=== PATIENT | male | born 1975 | race Caucasian/White ===

== ENCOUNTER 2024-10-27 21:56 | Inpatient (IN) | payer OTHER, SELFPAY ==
[2024-10-27] VITALS (7 sets, daily range): BP systolic 148–178; BP diastolic 85–104; PULSE 103–110; RESP 18–20; TEMP 38.2; O2SAT 92–97; BMI 51.7
--- NOTE | 2024-10-27 22:11 | CRLHL7_ITS ---
For Patients: As a result of the Century Cures Act, medical imaging exams and procedure reports are released immediately into your electronic medical record. You may view this report before your referring provider. If you have questions, please contact your health care provider. INDICATION: Right lower quadrant pain and fever. TECHNIQUE: CT abdomen and pelvis acquired with 150 cc Omnipaque 370 IV contrast. COMPARISON: None. FINDINGS: Lower chest: Unremarkable. Liver: Hepatic steatosis. No suspicious hepatic lesion. Gallbladder and bile ducts: Unremarkable. Pancreas: Unremarkable. Spleen: Unremarkable. Adrenal glands: Unremarkable. Kidneys: Symmetric renal enhancement. No hydronephrosis or hydroureter. Probable bilateral renal cysts. No urinary calculi. GI tract: The appendix is distended to 1.1 cm with prominent periappendiceal fat stranding and small proximal appendicolith. Appendiceal seth appear indistinct. No discrete periappendiceal fluid collection/abscess appreciated. No bowel obstruction. Vasculature: No abdominal aortic aneurysm. Grossly patent vasculature. Lymph nodes: No suspicious lymphadenopathy. Peritoneum/Abdominal Wall: No ascites or pneumoperitoneum. Small fat containing left inguinal hernia. Pelvis: Normal bladder. Unremarkable prostate and seminal vesicles. Bones: No acute abnormality. IMPRESSION: 1. Findings compatible with acute appendicitis with small proximal appendicolith. Indistinctness of the appendiceal wall and prominent periappendiceal fat stranding is suggestive of perforation. No teri pneumoperitoneum. No discrete periappendiceal fluid collection/abscess appreciated. 2. Hepatic steatosis. Please note that all CT scans at this facility use dose modulation, iterative reconstruction, and/or weight-based dosing when appropriate to reduce radiation dose to as low as reasonably achievable. Dictated by Sam Farr MD @ 10/27/2024 11:42:19 PM (Electronically Signed)
--- NOTE | 2024-10-27 22:14 | ED_ITS ---
HPI - General Adult General Date Seen: 10/27/24 Chief complaint: Abdominal Pain Stated complaint: Right side abdominal pain, chills Time Seen by Provider: 10/27/24 22:11 History of Present Illness HPI narrative: Patient is a 49-year-old male here for evaluation of right lower abdominal pain. He says he started to have pain at around 4:00 p.m. and it has worsened since then. It is in the low abdomen and wraps around a little bit to his back. He denies prior history of similar pain. No known history of kidney stones, he says recently he has been having some urinary urgency, waking up at night feeling like he has a strong urge to urinate, this has been going on for a little while he saw his primary doctor and a sleep study was done but he does not know the results of that yet. He does not have any new urinary symptoms. He has had some nausea, no vomiting. No changes in bowel habits. No known fevers at home. He denies tobacco, denies significant alcohol use. Related Data Home Medications ?Medication ?Instructions ?Recorded ?Confirmed No Known Home Medications 10/27/24 10/27/24 Allergies Allergy/AdvReac Type Severity Reaction Status Date / Time No Known Drug Allergies Allergy Verified 10/27/24 23:19 Review of Systems Status of ROS: Reports: 10 or more systems reviewed and unremarkable except as noted in History and below PFSH PFS Social History Smoking Status: Never smoker How often do you have a drink containing alcohol: 2-3 times a week How often do you have six or more drinks on one occasion: Never AUDIT-C Alcohol total score: 3 Non-prescribed substance use: marijuana (any form) Non-prescribed substance use details: monthly or less Exam Narrative: Exam Narrative: Vital signs reviewed In general, an alert, middle-aged male. He is significantly overweight, mildly diaphoretic looks uncomfortable. Head: Normocephalic, atraumatic. Eyes: Sclera clear. Pupils equal and reactive. ENT: Mucous membranes moist. Neck: Supple without adenopathy. Heart: Regular rate and rhythm without murmur. Lungs: Clear. No increased work of breathing, crackles or wheezes. Abdomen: Obesity limits exam. He has some tenderness in the right lower abdomen/pelvis. No rebound guarding or rigidity. Extremities: Well perfused, pulses intact. No significant edema. Neurologic: Alert, conversant. Speech fluent, face symmetric. Moves all extremities equally. Skin: Warm, slightly diaphoretic. Affect: Normal. Const: Vital Signs, click to edit/add: Vital Signs - 24 hr 10/27/24 21:59 10/27/24 22:30 10/27/24 22:40 Temperature 100.7 F H Pulse Rate 103 H 104 H Pulse Rate [Pulse Oximeter] 105 H Respiratory Rate 18 20 Blood Pressure 148/85 H Blood Pressure [Ri ght Upper Arm] 178/104 H Pulse Oximetry 97 95 92 Oxygen Delivery Me thod Room Air 10/27/24 22:45 10/27/24 23:10 10/27/24 23:11 Temperature Pulse Rate 104 H 110 H 108 H Pulse Rate [Pulse Oximeter] Respiratory Rate 18 Blood Pressure 160/88 H Blood Pressure [Ri ght Upper Arm] Pulse Oximetry 95 95 94 Oxygen Delivery Me thod 10/27/24 23:15 Temperature Pulse Rate 108 H Pulse Rate [Pulse Oximeter] Respiratory Rate Blood Pressure Blood Pressure [Ri ght Upper Arm] Pulse Oximetry 95 Oxygen Delivery Me thod Course Course ED Course: . Patient presents with fairly recent onset of abdominal pain, he does have a fever here and looks pretty uncomfortable. Diagnostic considerations would include appendicitis, kidney stone, pyelonephritis, ischemia, dissection, among others. I have ordered some pain medication, morphine, Zofran, L normal saline, CT of the abdomen with contrast. UA, and routine blood work ordered and pending. I did attempt to do a bedside ultrasound to evaluate for possible gallstones, hydronephrosis, aortic pathology. His body habitus makes it extremely difficult to see anything and I would not feel confident using those images to rule in or out any pathology. Labs returned showing a white blood cell count of 11.8, CRP mildly elevated at 3.2. Other labs reviewed and negative including a negative UA. CT scan by my review showed a dilated and inflamed appendix at about 12 mm, and appendicoliths, I do not see surrounding abscess. Final radiology read is pending. Case discussed with Dr. Gurrola as to whether patient is an appropriate surgical candidate for here. SMALL ENGINE TRAINER and Dr. Gurrola feel they can safely do the surgery here. At her request I have given him a 2nd L bolus, lactated Ringer's. I gave him a 0.5 mg of Dilaudid for continued pain. He will be transferred to the OR as soon as possible for surgery. Vital Signs Vital signs: Initial Vital Signs Temperature 100.7 F H 10/27/24 21:59 Temperature Source Temporal Artery Scan 10/27/24 21:59 Pulse Rate 105 H 10/27/24 21:59 Respiratory Rate 18 10/27/24 21:59 Blood Pressure 178/104 H 10/27/24 21:59 Blood Pressure Mean 128 H 10/27/24 21:59 Pulse Oximetry 97 10/27/24 21:59 Vital Signs Temperature 100.7 F H 10/27/24 21:59 Pulse Rate 105 H 10/27/24 21:59 Respiratory Rate 18 10/27/24 21:59 Blood Pressure 178/104 H 10/27/24 21:59 Pulse Oximetry 97 10/27/24 21:59 Temperature 100.7 F H 10/27/24 21:59 Pulse Rate 108 H 10/27/24 23:15 Respiratory Rate 18 10/27/24 23:11 Blood Pressure 160/88 H 10/27/24 23:11 Pulse Oximetry 95 10/27/24 23:15 Oxygen Delivery Method Room Air 10/27/24 22:30 Medications Administered Medications: Discontinued Medications Generic Name Dose Route Start Last Admin Trade Name Freq PRN Reason Stop Dose Admin Hydromorphone HCl 0.5 mg 10/27/24 23:46 10/27/24 23:52 Hydromorphone 0.5 Mg/0.5 Ml Inj IVP 10/27/24 23:47 0.5 mg ONCE ONE Administration Sodium Chloride 1,000 mls @ 1,000 mls/hr 10/27/24 22:15 10/27/24 23:28 0.9 % Sodium Chloride 1000 Ml IV 10/27/24 23:14 Infused .Q1H ABBEY Infusion Morphine Sulfate 4 mg 10/27/24 22:11 10/27/24 22:23 Morphine 4 Mg/Ml Inj IVP 10/27/24 22:12 4 mg ONCE ONE Administration Ondansetron HCl 4 mg 10/27/24 22:11 10/27/24 22:23 Ondansetron 2 Mg/Ml Inj IVP 10/27/24 22:12 4 mg ONCE ONE Administration Medical Decision Making Lab Data Labs: Lab Results 10/27/24 10/27/24 Range/Units 22:12 22:45 WBC 11.80 H (4.50-11.00) K/uL RBC 5.23 (4.30-5.90) m/uL Hgb 14.7 (13.5-17.5) gm/dL Hct 45.3 (37.0-53.0) % MCV 87 (80-100) fL MCH 28 (26-34) pg MCHC 33 (32-36) gm/dL RDW Coeff of [place] 13.4 (11.5-15.5) % Plt Count 274 (140-440) K/uL Neut % (Auto) 80.3 H (42.0-72.0) % Lymph % (Auto) 10.3 L (20-44) % [place] % (Auto) 8.0 (0.0-11.0) % Eos % (Auto) 0.8 (0.0-7.0) % Baso % (Auto) 0.3 (0.0-3.0) % Neut # (Auto) 9.50 H (1.7-7.0) K/uL Lymph # (Auto) 1.20 (0.90-2.90) K/uL [place] # (Auto) 0.90 (0.00-0.90) K/UL Eos # (Auto) 0.10 (0.00-0.50) K/uL Baso # (Auto) 0.00 (0.00-0.30) K/uL Abs Immat Gran (auto) 0.00 (0.00-0.30) K/uL Imm/Tot Granulo (auto) 0.3 % Sodium 135 (135-149) mmol/L Potassium 4.0 (3.6-5.1) mmol/L Chloride 100 (96-114) mmol/L Carbon Dioxide 27 (20-32) mmol/L Anion Gap 8 (7-15) mEq/L BUN 14 (5-24) mg/dL Creatinine 0.7 (0.5-1.5) mg/dL Estimated Creat Clear 145.85 Estimated GFR 114 ml/min Glucose 115 (60-115) mg/dL Lactate 1.3 (0.5-1.9) mmol/L Calcium 9.1 (8.4-10.6) mg/dL Total Bilirubin 0.7 (0.1-1.5) mg/dL Direct Bilirubin 0.3 (0.0-0.5) mg/dL AST 24 (12-35) U/L ALT 43 (4-50) U/L Alkaline Phosphatase 74 (40-150) U/L C-Reactive Protein 3.2 H (0.5-1.0) mg/dL Total Protein 6.9 (6.0-8.3) g/dL Albumin 4.1 (3.3-5.0) g/dL Lipase 70 (23-300) U/L Urine Color Yellow (Yellow) Urine Appearance Clear (Clear) Urine pH 7.5 (5.0-8.5) Ur Specific [place] 1.020 (1.000-1.030) Urine Protein Negative (Negative) Urine Glucose (UA) Negative (Negative) Urine Ketones Negative (Negative) Urine Blood Negative (Negative) Urine Nitrite Negative (Negative) Urine Bilirubin Negative (Negative) Urine Urobilinogen 1.0 (0.2-1.0) Ur Leukocyte Esterase Negative (Negative) Urine RBC 0-2 (0-2) Urine WBC 0-2 (0-5) Ur Squamous Epith Cells Few (None-Few) Urine Bacteria None (None) Imaging Data CT scan - abdomen: Attestation: I have reviewed the pertinent imaging results. Radiologist's impression: Patient: HELEN CALIX Facility: [facility] Site . Site : [id number] Study: CT-Abdomen/Pelvis W/ 150CC ISOVUE 370-10/27/2024 11:30:44 PM Ordering Physician: Keerthi Terrazas Final Report: INDICATION: Right lower quadrant pain and fever. TECHNIQUE: CT abdomen and pelvis acquired with 150 cc Omnipaque 370 IV contrast. COMPARISON: None. FINDINGS: Lower chest: Unremarkable. Liver: Hepatic steatosis. No suspicious hepatic lesion. Gallbladder and bile ducts: Unremarkable. Pancreas: Unremarkable. Spleen: Unremarkable. Adrenal glands: Unremarkable. Kidneys: Symmetric renal enhancement. No hydronephrosis or hydroureter. Probable bilateral renal cysts. No urinary calculi. GI tract: The appendix is distended to 1.1 cm with prominent periappendiceal fat stranding and small proximal appendicolith. Appendiceal seth appear indistinct. No discrete periappendiceal fluid collection/abscess appreciated. No bowel obstruction. Vasculature: No abdominal aortic aneurysm. Grossly patent vasculature. Lymph nodes: No suspicious lymphadenopathy. Peritoneum/Abdominal Wall: No ascites or pneumoperitoneum. Small fat containing left inguinal hernia. Pelvis: Normal bladder. Unremarkable prostate and seminal vesicles. Bones: No acute abnormality. IMPRESSION: 1. Findings compatible with acute appendicitis with small proximal appendicolith. Indistinctness of the appendiceal wall and prominent periappendiceal fat stranding is suggestive of perforation. No teri pneumoperitoneum. No discrete periappendiceal fluid collection/abscess appreciated. 2. Hepatic steatosis. Discharge Plan Discharge Clinical Impression: Acute appendicitis Patient Disposition: XFER to OR Follow Up/Referrals: Provider,Not a Local [Primary Care Provider] -
[2024-10-27] MEDS: 0.9 % SODIUM CHLORIDE 1000 ml 1,000 ML IV (22:23)
[2024-10-27] MEDS: ONDANSETRON 2 MG/ML inj 4 MG IVP (22:23)
[2024-10-27] MEDS: MORPHINE 4 MG/ML INJ IVP (22:23)
[2024-10-27 22:51] LABS: Lactate Sepsis w/Reflex* 1.3 mmol/L (0.5-1.9)
[2024-10-27 22:57] LABS: Appearance Urine Clear (Clear); Bilirubin Urine Negative (Negative); Blood Urine Negative (Negative); Color Urine Yellow (Yellow); Glucose Urine Negative (Negative); Ketones Urine Negative (Negative); Leukocyte Esterase Urine Negative (Negative); Nitrite Urine Negative (Negative); Protein Urine Negative (Negative); pH Urine 7.5 (5.0-8.5)
[2024-10-27 23:02] LABS: Basophils Percent Auto 0.3 % (0.0-3.0); Eosinophils Percent Auto 0.8 % (0.0-7.0); Hematocrit 45.3 % (37.0-53.0); Hemoglobin* 14.7 gm/dL (13.5-17.5); Immature Granulocytes Pct Auto 0.3 %; Lymphocytes Percent Auto 10.3 % (20-44); Mean Corpuscular HGB Conc 33 gm/dL (32-36); Mean Corpuscular Hemoglobin 28 pg (26-34); Mean Corpuscular Volume 87 fL (80-100); Neutrophils Percent Auto 80.3 % (42.0-72.0); Platelet Count* 274 K/uL (140-440); RDW Coefficient of Variation % 13.4 % (11.5-15.5); Red Blood Count 5.23 m/uL (4.30-5.90)
[2024-10-27 23:03] LABS: Slide Review Reflex No
--- OUTSIDE RECORDS SUMMARY | 2024-10-27 23:04 | XMS_ITS | Encounter Summary ---
Author Organization [facility] Address [address] [place] [address] Care Team Providers Care Senior Net Engineer Name Role Phone Seng Rob MD Primary Care Provider [phone] Encounter Details Date Type Department Care Team (Late st Contact Info) Description 09/14/2024 E-Visit [facility] [address] Pulmonary Medicine [address] [place], [place] [id number] Mychart, [place] [address] Social History Tobacco Use Types Packs/Day Years Used Date Smoking Tobacco: Never Passive Smoke Exposure: Never Smokeless Tobacco: Never Alcohol Use Standard Drinks/Week Comments Yes 0 (1 standard drink = 0.6 oz pur e alcohol) occ PHQ-2 Answer Date Recorded PHQ-2 Score 0 09/10/2024 Hunger Vital Sign Answer Date Recorded Within the past 12 months, y ou worried that your food would run out before you got the money to buy more. Never true 09/10/19 25 Within the past 12 months, t he food you bought just didn't last and you didn't have money to get more. Never true 09/10/2024 PRAPARE - Transportation Answer Date Re corded In the past 12 months, has l ack of transportation kept you from medical appointments or from getting medications? No 08/14 In the past 12 months, has l ack of transportation kept you from meetings, work, or from getting things needed for daily living? No 09/10/2024 Housing Stability Vital Sign Answer Josue e Recorded In the last 12 months, was t here a time when you were not able to pay the mortgage or rent on time? No 09/10/2024 In the past 12 months, how m any times have you moved where you were living? 0 09/10/2024 At any time in the past 12 m ont, were you homeless or living in a long term (including now)? No 09/10/2024 Sex and Gender Information Value Date Recorded Sex Assigned at Not on file Legal Sex Male 4:34 AM CDT Gender Identity Not on file Sexual Orientation Not on file documented as of this encounter Plan of Treatment Upcoming Encounters Date Type Department Care Team (Late st Contact Info) Description 11/10/2024 2:00 PM CDT Office Visit Specialty Center [address] Pulmonary Medicine [address] [place], [place] [address] López Mullen MD [address] [facility] [id number] [place] [address] documented as of this encounter Visit Diagnoses Not on filedocumented in this encounter Care Teams Senior Net Engineer Relationship Specialty [place] [address] [place] [address] PCP - General Family Practice 09/28/19 documented as of this encounter
--- OUTSIDE RECORDS SUMMARY | 2024-10-27 23:04 | XMS_ITS | Encounter Summary ---
[facility] Address [address], [place] [address] Care Team Providers Care Product Strategy Director Name Role Phone Seng Rob MD Primary Care Provider [phone] Reason for Referral * Procedure/Equipment (Routine) - Closed Specialty Diagnoses / Procedures Referred By Mara quan Referred To Contact Diagnoses CELESTE (obstructive sleep apnea) Procedures Sleep Diagnostic Tests: [place] [address] [place] [address] Phone: tel: fax: Referral ID Status Reason Start Date Expiration Date Visits Re quested Visits Authorized [id number] Closed 09/11/2024 12/11/2025 1 1 ER CLERK Reason for Visit * Procedure/Equipment (Routine) - Closed Specialty Diagnoses / Procedures Referred By Mara quan Referred To Contact Diagnoses CELESTE (obstructive sleep apnea) Procedures Sleep Diagnostic Tests: [place] [address] [place] [address] Phone: tel: fax: Referral ID Status Reason Start Date Expiration Date Visits Re quested Visits Authorized [id number] Closed 09/11/2024 12/11/2025 1 1 Encounter Details Date Type Department Care Team (Latest Contact Info) Description 10/16/2024 10:07 AM SUMMER CLERK - 10/16/2024 11:59 PM SUMMER CLERK Hospital Encounter [facility] [address] [facility] [address] [address] [place] [address] Discharge Disposition: Home Social History Tobacco Use Types Packs/Day Years [...] any time in the past 12 m onths, were you homeless or living in a senior care (including now)? No 09/10/2024 Sex and Gender Information Value Date Recorded Sex Assigned at Not on file Legal Sex Male 4:34 AM CDT Gender Identity Not on file Sexual Orientation Not on file documented as of this encounter Medications at Time of Discharge multivitamin (THERAGRAN) tablet Take 1 Tablet by mouth daily. unknown medication Take by mouth. Supplements- greens and reds documented as of this encounter Plan of Treatment Upcoming Encounters Date Type Department Care Team (Linda vargas Contact Info) Description 11/10/2024 2:00 PM CDT Office Visit Specialty Center [address] Pulmonary Medicine [address] [place] [address] López Mullen MD [address] [facility] [address] [place] [address] Scheduled Orders Name Type Priority Associated Diagnoses Orde r Schedule Sleep Diagnostic Tests: HST Sleep Study Routine CELESTE (obstructive sleep apnea) 1 Occurrences starting 10/16/2024 until 10/16/2024 documented as of this encounter Visit Diagnoses Diagnosis CELESTE (obstructive sleep apnea) Obstructive sleep apnea (adult) (pediatric) documented in this encounter Care Teams Product Strategy Director Relationship Specialty [place] [address] [place] [address] PCP - General Family Practice 09/28/19 documented as of this encounter
--- OUTSIDE RECORDS SUMMARY | 2024-10-27 23:04 | XMS_ITS | Clinical Summary ---
Author Organization [facility] Address [address], [place] [address] Care Team Providers Care Network Security Architect Name Role Phone DarronSeng umana MD Primary Care Provider [phone] Source Comments You are receiving this document as you are listed as the primary care provider,follow-up provider, or the patient has been referred to you for consultation.This is in compliance with the Medicare and[facility] EHR Incentive Program,which states Providers who transition their patient to another setting of careor provider of care or refers their patient to another provider of care shouldprovide summary care record for each transition of care or referral. [facility] Allergies No known active allergies Medications multivitamin (THERAGRAN) tablet Take 1 Tablet by mouth daily. Active unknown medication Take by mouth. Supplements - greens and reds Active Active Problems Problem Noted Date Diagnosed Date Synovial cyst of right popliteal space 2 Primary osteoarthritis of right knee 04/10/2020 Complex tear of lateral meni scus of right knee as current injury 04/10/2020 Post-traumatic osteoarthritis of left knee 04/10 Anal fistula 12/21/2019 Overview (12/21/2019): Added automatically from request for surgery [id number] FH: CAD (coronary artery disease) 09/23/2019 Overview (09/23/2019): Dad - [place] late 40s, DM Encounters Date Type Department Care Team Description 10/16/2024 10:07 AM STORE WORKER - 10/16/2024 11:59 PM STORE WORKER [facility] [address] [facility] [address] [address] [place] [address] Discharge Disposition: Home 09/14/2024 [facility]Visit [facility] Pulmonary Medicine [address] [place] [address] Mychart, Generic Provider 09/11/2024 Notes/Orders [place] [address] [address] [place] [phone] Seng Rob MD CELESTE (obstructive sleep apnea) (Primary Dx) 09/10/2024 11:20 AM STORE WORKER Lab Visit [facility] [address] [place] [phone] Lipid screening; Diabetes mellitus screening; Encounter for screening for malignant neoplasm of prostate; Fatigue, unspecified type 09/10/2024 10:30 AM STORE WORKER Office Visit [place] [address] [facility] [id number] [place] [phone] Seng Rob MD Well adult exam (Primary Dx); Lipid screening; Diabetes mellitus screening; Encounter for screening for malignant neoplasm of prostate; Fatigue, unspecified type; Screening for colon cancer from Last 3 Months Immunizations Immunization Administration Dates Next Due Moderna Monovalent 12+ 01/12/2021,12/15/2020 Tdap 09/23/2019 Family History Medical History Relation Name Comments Diabetes Father Luiz Heart Disease Father Luiz High Cholesterol Father Luiz Hypertension Father Luiz Stroke Father Luiz Kidney/Bladder Disease Mother Heavenly Cancer Maternal Uncle Adithya prostate Early Maternal Uncle Adithya Early Paternal Uncle Ruben Heart Disease Paternal Uncle Ruben Relation Name Status Comments Father Luiz Mother Heavenly Alive Brother Alive Maternal Grandfather Maternal Grandmother Maternal Uncle Adithya Paternal Grandfather Paternal Grandmother Paternal Uncle Ruben Sister Alive Social History Tobacco Use Types Packs/Day Years Used Date Smoking Tobacco: Never Passive Smoke Exposure: Never Smokeless Tobacco: Never Tobacco Cessation:Counseling Given: Not Answered Alcohol Use Standard Drinks/Week Comments Yes 0 [...] any time in the past 12 m [facility], were you homeless or living in a half-way (including now)? No 09/10/2024 Sex and Gender Information Value Date Recorded Sex Assigned at Not on file Legal Sex Male 4:34 AM CDT Gender Identity Not on file Sexual Orientation Not on file Last Filed Vital Signs Vital Sign Reading Time Taken Comments Blood Pressure 120/85 09/10/2024 10:26 AM STORE WORKER Pulse 97 09/10/2024 10:26 AM STORE WORKER Temperature 36.1 C (97 F) 07/12/2020 10:00 AM STORE WORKER Respiratory Rate 16 09/10/2024 10:26 AM STORE WORKER Oxygen Saturation 98% 09/10/2024 10:26 AM STORE WORKER Inhaled Oxygen Concentration - - Weight 177.4 kg (391 lb) 09/10/2024 10:26 AM STORE WORKER Height 184 cm (6' 0.44) 09/10/2024 10:26 AM STORE WORKER Body Mass Index 52.39 09/10/2024 10:26 AM STORE WORKER Plan of Treatment Upcoming Encounters Date Type Department Care Team (Late st Contact Info) Description 11/10/2024 2:00 PM CDT Office Visit [facility] Pulmonary Medicine [address] [place] [address] López Mullen MD [address] [facility] [address] [place] [address] Health Maintenance Due Date Last Done Comments Hep C Screening (Preventive Services) 1975 HIV Screening (Preventive Services) 1992 HepB (1) 1995 Colonoscopy 02/25/2023 02/26/2020 COVID-19 Vaccine (3 - 2023-2 5 season) 2024 01/12/2021, 12/15/2020 Influenza (#1) 2024 Adult Preventive Visit 09/10/2025 , 08/27/2022, 09/23/2019 Zoster/Shingles (1 of 2) 2026 Diabetes Screening- (based o n age and BMI) 09/10/2027 09/10/2024, 08/24/2022, 09/23/2019 Cholesterol 09/10/2029 09/10/2024, 08/24/2022, 09/23/2019 DTaP/Tdap/Td (2 - Tdap) 09/23/2029 09/23/2019 HepA Aged Out No longer eligi ble based on patient's age to complete this topic Hib Aged Out No longer eligi ble based on patient's age to complete this topic IPV (Polio) Aged Out No longer eligi ble based on patient's age to complete this topic MCV4 Aged Out No longer eligi ble based on patient's age to complete this topic Meningococcal B Aged Out No longer el igible based on patient's age to complete this topic Pneumococcal Aged Out No longer eligi ble based on patient's age to complete this topic Procedures Procedure Name Priority Date/Time Associated Diagnosis Comments BASIC METABOLIC PANEL Routine 09/10/2024 10:59 AM STORE WORKER Fatigue, unspecified type COMPLETE BLOOD COUNT-NO DIFF Routine 09/10/2024 10:59 AM STORE WORKER Fatigue, unspecified type TSH, SENSITIVE (WITH REFLEX) Routine 09/10/2024 10:59 AM STORE WORKER Fatigue, unspecified type PROSTATIC SPECIFIC ANTIGEN(SCREEN) Routine 09/10/2024 10:59 AM STORE WORKER Encounter for screening for malignant neoplasm of prostate HGB A1C Routine 09/10/2024 10:59 AM STORE WORKER Diabetes mellitus screening LIPID PANEL & DIRECT LDL (IF NEEDED) Routine 09/10/2024 10:59 AM STORE WORKER Lipid screening ENDOSCOPY, COLON, SCREENING/DIAGNOSTI C Routine 02/26/2020 2:20 PM CDT Screen for colon cancer from Last 3 Months or Most Recently Relevant to Health Maintenance Results * Lipid Panel & Direct LDL (if Needed) (09/10/2024 10:59 AM STORE WORKER) Cholesterol 156 0 - 199 mg/dL 09/10/2024 7:[address] [facility] Triglyceride 103 <=149 mg/dL 09/10/2024 7:[address] [facility] HDL Cholesterol 40 >=40 mg/dL 7:[address] [facility] LDL, Calculated 95 <130 mg/dL 7:[address] [facility] Non HDL Chol, Calculated 116 <=159 mg/dL 09/10/2024 7:[address] [facility] Cholesterol/HDL Ratio 3.9 <=5.0 09/10/2024 7:[address] [facility] Hours Fasting 0.0 8 - 12 Hours 09/10/2024 7:[address] [facility] Blood Venipuncture / Unknown 09/10/2024 10:59 AM STORE WORKER 09/10/2024 10:59 AM STORE WORKER us Seng Rob MD LAB_1 Final Result [facility] [address] [place] [address] * (ABNORMAL) Basic Metabolic Panel (09/10/2024 10:59 AM STORE WORKER) Sodium 138 136 - 145 mmol/L 09/10/2024 7:[address] [facility] Potassium 4.0 3.5 - 5.1 mmol/L 09/10/2024 7:[address] [facility] Chloride 106 98 - 109 mmol/L 09/10/2024 7:[address] [facility] CO2 24 20 - 29 mmol/L 09/10/2024 7:[address] [facility] Anion Gap 8 6 - 16 mmol/L 09/10/2024 7:[address] [facility] Calcium 8.8 8.4 - 10.4 mg/dL 09/10/2024 7:[address] [facility] BUN 10 7 - 26 mg/dL 09/10/2024 7:[address] [facility] Creatinine 0.77 0.73 - 1.18 mg/dL 09/10/2024 7:[address] [facility] Glucose 106(H) 70 - 100 mg/dL 09/10/2024 7:[address] [facility] Comment:The given reference range is for the fasting state. Non-fasting reference range for glucose is 70 - 180 mg/dL. GFR, Estimated >60 >60 mL/min/1.7 3m2 09/10/2024 7:[address] [facility] Hours Fasting 0.0 8 - 12 Hours 09/10/2024 7:[address] [facility] Blood Venipuncture / Unknown 09/10/2024 10:59 AM STORE WORKER 09/10/2024 10:59 AM [facility] us Seng Rob MD LAB_1 Final Result [facility] [address] [place] [address] * Prostatic Specific Antigen (Screen) (09/10/2024 10:59 AM [facility]) Prostatic Specific Antigen 0.4 0.0 - 4.0 ng/mL 09/10/2024 6:06 PM [facility] Blood Venipuncture / Unknown 09/10/2024 10:59 AM STORE WORKER 09/10/2024 10:59 AM [facility] Narrative [facility] - 09/10/2024 6:06 PM STORE WORKER The Khalil PSA Chemiluminescent immunoassay is used. Results obtained with different test methods or kits cannot be used interchangeably. Seng Rob MD LAB_1 Final Result [facility] [address] [place], [place] [address] * Complete Blood Count-No Diff (09/10/2024 10:59 AM STORE WORKER) WBC 6.2 3.5 - 10.5 x10(9)/L 09/10/2024 11:04 AM [facility] RBC 5.42 4.32 - 5.72 x10(12)/L 09/10/2024 11:04 AM [facility] Hemoglobin 15.1 13.5 - 17.5 g/dL 09/10/2024 11:04 AM [facility] HCT 45.6 38.8 - 50.0 % 09/10/2024 11:04 AM [facility] MCV 84.1 80.0 - 100.0 fL 09/10/2024 11:04 AM [facility] MCH 27.9 27.6 - 33.3 pg 09/10/2024 11:04 AM [facility] MCHC 33.1 31.5 - 35.2 g/dL 09/10/2024 11:04 AM [facility] RDW 13.2 11.9 - 15.5 % 09/10/2024 11:04 AM [facility] Platelets 308 150 - 450 x10(9)/L 09/10/2024 11:04 AM [facility] Blood Venipuncture / Unknown 09/10/2024 10:59 AM STORE WORKER 09/10/2024 10:59 AM STORE WORKER Seng Rob MD LAB_1 Final Result [facility] [address] [place] [address] * TSH with Free T4 (if TSH Abnormal) (09/10/2024 10:59 AM STORE WORKER) TSH, Reflex 1.10 0.30 - 4.50 uIU/mL 09/10/2024 6:06 PM STORE WORKER [facility] Blood Venipuncture / Unknown 09/10/2024 10:59 AM STORE WORKER 09/10/2024 10:59 AM STORE WORKER Seng Rob MD LAB_1 Final Result Performing Organization Address City/[facility]/ZIP Co de Phone Number [facility] [address] * (ABNORMAL) Hgb A1C (09/10/2024 10:59 AM STORE WORKER) [facility] Hemoglobin A1C 6.2(H) <=5.6 % 09/10/2024 5:23 PM STORE WORKER [facility] Estimated Average Glucose (Calc) 131 < 117 mg/dL 09/10/2024 5:23 PM [facility] Comment:Estimated average gl ucose (eAG) converts A1c into glucose units (mg/dL) and estimates average glucose over the past approximately 3 months. The eAG reference interval (<117 mg/dL) corresponds to an A1c of <5.7%. Blood Venipuncture / Unknown 09/10/2024 10:59 AM STORE WORKER 09/10/2024 10:59 AM STORE WORKER Narrative [facility] - 09/10/2024 5:23 PM STORE WORKER For patients not previously diagnosed with diabetes: 5.7-6.4%: Increased risk for diabetes 6.5% and greater: Diagnostic for diabetes For patients diagnosed with diabetes: <8.0%: Goal of therapy for ages 18-75 Clinicians may recommend a higher or lower goal for specific individuals. Seng Rob MD LAB_1 Final Result Performing Organization Address City/[facility]/ZIP Co de Phone Number [facility] [address] * Endoscopy, Colon, Screening/Diagnostic (02/26/2020 2:20 PM CDT) Anatomical Region Laterality Modality Other 02/26/2020 2:20 PM CDT Narrative 02/26/2020 2:20 PM CDT Patient Name: Joe Dumont Procedure Date: 02/26/2020 2:20 PM Date of : 1975 Admit Type: Outpatient Age: 44 Gender: Male Note Status: Finalized Attending MD: Seng Barbosa MD Procedure: Colonoscopy Indications: This is the patient's first colonoscopy, Rectal bleeding, FHx form returned - no increased risk Providers: Seng Barbosa MD, Shikha Rendon RN Referring MD: Seng Barbosa MD Medicines: Fentanyl 100 micrograms IV, Midazolam 3 mg IV Complications: No immediate complications. Procedure: Pre-Anesthesia Assessment: - The following statement was reviewed with the patient during pre-procedure scheduling, and was again reviewed with the patient by the endoscopist immediately prior to the procedure during the consent process, with an emphasis on the first sentence: With any procedure there is a small but inherent risk of acquiring infection including, but not limited to, the novel coronavirus (COVID-19). Please be aware that there is a potential for your procedure or surgery to be postponed, or possibly canceled, if you should test positive for COVID-19. There is also a potential for postponement of your procedure if there is a significant reduction in resources required to safely perform your procedure. After I obtained informed consent, the scope was passed under direct vision. Throughout the procedure, the patient's blood pressure, pulse, and oxygen saturations were monitored continuously. The [id number] was introduced through the anus and advanced to the terminal ileum, with identification of the appendiceal orifice and IC valve. The colonoscopy was performed without difficulty. The patient tolerated the procedure well. The quality of the bowel preparation was excellent. Findings: The perianal and digital rectal examinations were normal. A 10 mm polyp was found in the sigmoid colon at 40 cm from the anal verge. The polyp was pedunculated. The polyp was removed with a hot snare. Resection and retrieval were complete. Estimated blood loss was minimal. The exam was otherwise normal throughout the examined colon. The terminal ileum appeared normal. The retroflexed view of the distal rectum was normal and showed no anal or rectal abnormalities. Moderate Sedation: Moderate (conscious) sedation was administered by the endoscopy nurse and supervised by the endoscopist. The following parameters were monitored: oxygen saturation, heart rate, blood pressure, and response to care. Total physician intraservice time was 22 minutes. Impression: - One 10 mm polyp in the sigmoid colon, removed with a hot snare. Resected and retrieved. - The examined portion of the ileum was normal. Recommendation: - Await pathology results. - Repeat colonoscopy in 3 - 5 years for surveillance based on pathology results. - High fiber diet. Procedure Code(s): --- Professional --- 59164, Colonoscopy, flexible; with removal of tumor(s), polyp(s), or other lesion(s) by snare technique G0500, Moderate sedation services provided by the same physician or other qualified health senior care specialist performing a gastrointestinal endoscopic service that sedation supports, requiring the presence of an independent trained observer to assist in the monitoring of the patient's level of consciousness and physiological status; initial 15 minutes of intra-service time; patient age 5 years or older (additional time may be reported with 11319, as appropriate) Diagnosis Code(s): --- Professional --- D12.5, Benign neoplasm of sigmoid colon K62.5, Hemorrhage of anus and rectum CPT copyright 2018 [employer]. All rights reserved. The codes documented in this report are preliminary and upon telephone order clerk review may be revised to meet current compliance requirements. Seng Barbosa MD 02/26/2020 3:37:31 PM This document has been electronically signed. Number of Addenda: 0 Note Initiated On: 02/26/2020 2:20 PM Endoscopy Report Procedure Note Seng Barbosa MD - 02/26/2020 Patient Name: Joe Dumont Procedure Date: 02/26/2020 2:20 PM Date of : 1975 Admit Type: Outpatient Age: 44 Gender: Male Note Status: Finalized Attending MD: Seng Barbosa MD Procedure: Colonoscopy Indications: This is the patient's first colonoscopy, Rectal bleeding, FHx form returned - no increased risk Providers: Seng Barbosa MD, Shikha Rendon RN Referring MD: Seng Barbosa MD Medicines: Fentanyl 100 micrograms IV, Midazolam 3 mg IV Complications: No immediate complications. Procedure: Pre-Anesthesia Assessment: - The following statement was reviewed with the patient during pre-procedure scheduling, and was again reviewed with the patient by the endoscopist immediately prior to the procedure during the consent process, with an emphasis on the first sentence: With any procedure there is a small but inherent risk of acquiring infection including, but not limited to, the novel coronavirus (COVID-19). Please be aware that there is a potential for your procedure or surgery to be postponed, or possibly canceled, if you should test positive for COVID-19. There is also a potential for postponement of your procedure if there is a significant reduction in resources required to safely perform your procedure. After I obtained informed consent, the scope was passed under direct vision. Throughout the procedure, the patient's blood pressure, pulse, and oxygen saturations were monitored continuously. The [id number] was introduced through the anus and advanced to the terminal ileum, with identification of the appendiceal orifice and IC valve. The colonoscopy was performed without difficulty. The patient tolerated the procedure well. The quality of the bowel preparation was excellent. Findings: The perianal and digital rectal examinations were normal. A 10 mm polyp was found in the sigmoid colon at 40 cm from the anal verge. The polyp was pedunculated. The polyp was removed with a hot snare. Resection and retrieval were complete. Estimated blood loss was minimal. The exam was otherwise normal throughout the examined colon. The terminal ileum appeared normal. The retroflexed view of the distal rectum was normal and showed no anal or rectal abnormalities. Moderate Sedation: Moderate (conscious) sedation was administered by the endoscopy nurse and supervised by the endoscopist. The following parameters were monitored: oxygen saturation, heart rate, blood pressure, and response to care. Total physician intraservice time was 22 minutes. Impression: - One 10 mm polyp in the sigmoid colon, removed with a hot snare. Resected and retrieved. - The examined portion of the ileum was normal. Recommendation: - Await pathology results. - Repeat colonoscopy in 3 - 5 years for surveillance based on pathology results. - High fiber diet. Procedure Code(s): --- Professional --- 61129, Colonoscopy, flexible; with removal of tumor(s), polyp(s), or other lesion(s) by snare technique G0500, Moderate sedation services provided by the same physician or other qualified health senior care specialist performing a gastrointestinal endoscopic service that sedation supports, requiring the presence of an independent trained observer to assist in the monitoring of the patient's level of consciousness and physiological status; initial 15 minutes of intra-service time; patient age 5 years or older (additional time may be reported with 75196, as appropriate) Diagnosis Code(s): --- Professional --- D12.5, Benign neoplasm of sigmoid colon K62.5, Hemorrhage of anus and rectum CPT copyright 2018 [employer]. All rights reserved. The codes documented in this report are preliminary and upon telephone order clerk review may be revised to meet current compliance requirements. Seng Barbosa MD 02/26/2020 3:37:31 PM This document has been electronically signed. Number of Addenda: 0 Note Initiated On: 02/26/2020 2:20 PM Endoscopy Report Seng Barbosa MD ET GI PROCEDURE ORDERABLES Fin al Result from Last 3 Months or Most Recently Relevant to Health Maintenance Insurance FULLY INSURED Advance Directives * Full Code (Latest Code Status on File) Date Activated Date Inactivated Comments 07/12/2020 9:33 AM 07/12/2020 1:51 PM * Full Code Date Activated Date Inactivated Comments 04/29/2020 1:57 PM 04/29/2020 7:50 PM Care Teams Network Security Architect Relationship Specialty [place] [address] [place] [address] PCP - General Family Practice 09/28/19
[2024-10-27 23:11] LABS: RBC Urine 0-2 (0-2); WBC Urine 0-2 (0-5)
[2024-10-27 23:11] LABS: Albumin* 4.1 g/dL (3.3-5.0); Chloride* 100 mmol/L (96-114); Sodium* 135 mmol/L (135-149)
[2024-10-27 23:12] LABS: Squamous Epithelial Cell Urine Few (None-Few)
[2024-10-27 23:14] LABS: Anion Gap 8 mEq/L (7-15); Aspartate Amino Transferase* 24 U/L (12-35); Bilirubin Direct* 0.3 mg/dL (0.0-0.5); Bilirubin Total* 0.7 mg/dL (0.1-1.5); Blood Urea Nitrogen* 14 mg/dL (5-24); Carbon Dioxide* 27 mmol/L (20-32); Creatinine* 0.7 mg/dL (0.5-1.5); Est. Creatinine Clearance* 145.85; Estimated Glomerular Filt Rate 114 ml/min; Total Protein* 6.9 g/dL (6.0-8.3)
[2024-10-27 23:15] LABS: Alanine Aminotransferase* 43 U/L (4-50); Alkaline Phosphatase* 74 U/L (40-150); Calcium* 9.1 mg/dL (8.4-10.6); Glucose* 115 mg/dL (60-115); Lipase* 70 U/L (23-300)
[2024-10-27 23:17] LABS: C Reactive Protein* 3.2 mg/dL (0.5-1.0)
[2024-10-27] MEDS: HYDROmorphone 0.5 mg/0.5 ml inj IVP (23:52)
[2024-10-28] VITALS (23 sets, daily range): BP systolic 97–145; BP diastolic 50–87; PULSE 78–94; RESP 17–22; TEMP 35.8–37.7; O2SAT 90–99
[2024-10-28] MEDS: LACTATED RINGERS 1000 ML 1,000 ML IV (00:07)
--- NOTE | 2024-10-28 00:51 | P.GSHP_ITS ---
History of Present Illness History of Present Illness Date Seen: 10/28/24 Chief complaint: Right side abdominal pain, chills Narrative: Joe Dumont is a 49 year old male presented to emergency room with right- sided abdominal pain. Patient states that his pain started around 4-5 p.m.. The pain was crampy and started all of a sudden. Patient thought he was constipated and took to collects. The pain was not improving, and he decided to present to the emergency room. He had some nausea but no vomiting. He was not passing gas after the pain started. I personally reviewed patient's workup in the emergency room. He was found to have an elevated WBC of 11. An abdominal CT was obtained that showed dilated appendix with periappendiceal inflammation. There was a small appendicolith at the base of the appendix. Review of Systems Narrative: General: no fevers HENT: no problems swallowing CV: no shortness of breath Resp: no cough GI: No nausea, vomiting, abdominal pain : no dysuria, no increased urinary frequency, no hematuria Skin: no new rashes Musculoskeletal: no back pain Neuro: no muscle weakness Psyche: no depression, no anxiety PFSH PFSH Surgical History H/O anal fistulotomy ?Z98.890 - Other specified postprocedural states (ICD-10) ?Z87.19 - Personal history of other diseases of the digestive system (ICD-10) Social History Narrative: Patient works as a low-[employer]. Smoking Status: Never smoker How often do you have a drink containing alcohol: 2-3 times a week How often do you have six or more drinks on one occasion: Never AUDIT-C Alcohol total score: 3 Non-prescribed substance use: marijuana (any form) Non-prescribed substance use details: monthly or less Meds Home Medications and Allergies Home Medications ?Medication ?Instructions ?Recorded ?Confirmed ?Type No Known Home Medications 10/27/24 10/27/24 History Allergies Allergy/AdvReac Type Severity Reaction Status Date / Time No Known Drug Allergies Allergy Verified 10/27/24 23:19 Exam Narrative: Exam Narrative: General appearance: Alert, cooperative, and in no distress Pulmonary: Chest symmetric, lungs clear bilaterally Cardiovascular Heart: Regular rate and rhythm, S1, S2, no murmurs/rubs/gallops Gastrointestinal Abdominal: soft, protuberant, not distended, tender to palpation in the right lower quadrant but nowhere else. Skin: Normal skin color, texture, and turgor. No rashes or lesions. Psychiatric: Alert, cooperative, normal affect. Const: Vital Signs, click to edit/add: Vital Signs - 24 hr 10/27/24 21:59 10/27/24 22:30 10/27/24 22:40 Temperature 100.7 F H Pulse Rate 103 H 104 H Pulse Rate [Pulse Oximeter] 105 H Respiratory Rate 18 20 Blood Pressure 148/85 H Blood Pressure [Ri ght Upper Arm] 178/104 H Pulse Oximetry 97 95 92 Oxygen Delivery Me thod Room Air 10/27/24 22:45 10/27/24 23:10 10/27/24 23:11 Temperature Pulse Rate 104 H 110 H 108 H Pulse Rate [Pulse Oximeter] Respiratory Rate 18 Blood Pressure 160/88 H Blood Pressure [Ri ght Upper Arm] Pulse Oximetry 95 95 94 Oxygen Delivery Me thod 10/27/24 23:15 Temperature Pulse Rate 108 H Pulse Rate [Pulse Oximeter] Respiratory Rate Blood Pressure Blood Pressure [Ri ght Upper Arm] Pulse Oximetry 95 Oxygen Delivery Me thod Progress Note:A&P Assessment and plan (1) Acute appendicitis: Status: Acute Plan 49-year-old male presents with acute appendicitis with possible perforation. I discussed with the patient in his brother his laboratory and CT findings. Patient has dilated appendix with periappendiceal inflammation and an appendicolith. Patient has a low-grade fever in the emergency room and slightly tachycardic, which is concerning for perforation. I recommended to proceed with laparoscopic appendectomy. The procedure was discussed in detail. The risks associated procedure including infection, bleeding, injury to intra-abdominal organs, and the need for additional procedures, as well as other cardiopulmonary complications were all discussed with the patient, and he agreed to proceed.
[2024-10-28] MEDS: LACTATED RINGERS 1000 ML 1,000 ML 75 ML IV (00:59)
[2024-10-28] MEDS: PIPERACILLIN/TAZOBACTAM 3.375 GM in 0.9 % SODIUM CHLORIDE Mini-bag 100 ML IVPB ×4 (01:20→19:04)
--- NOTE | 2024-10-28 01:46 | P.ANES_ITS ---
Anesthesia Charges Start Date/Time Anesthesia Start Date: 10/28/24 Anesthesia Start Time: 00:59 Stop Date/Time Anesthesia Stop Date: 10/28/24 Anesthesia Stop Time: 04:05 Summary Emergency: WOODYARD OPERATOR Coding CPT Codes CPT Codes: ANESTH SURG LOWER ABDOMEN - 79675 ([id number]) P3 - PATIENT W/SEVERE SYS DISEASE, QZ - WOODYARD OPERATOR SVC W/O COPY CLERK BY Additional Codes: Summary - Emergency: WOODYARD OPERATOR ([id number])
--- NOTE | 2024-10-28 01:46 | W.ANESCHARGE ---
Anesthesia Charges Start Date/Time Anesthesia Start Date: 10/28/24 Anesthesia Start Time: 00:59 Stop Date/Time Anesthesia Stop Date: 10/28/24 Anesthesia Stop Time: 04:05 Summary Emergency: RECYCLING SORTER Coding CPT Codes CPT Codes: ANESTH SURG LOWER ABDOMEN - 73820 ([id number]) P3 - PATIENT W/SEVERE SYS DISEASE, QZ - RECYCLING SORTER SVC W/O VENEER SUPERVISOR BY Additional Codes: Summary - Emergency: RECYCLING SORTER ([id number])
--- NOTE | 2024-10-28 01:47 | W.PM.NB ---
Nerve Block Nerve Block Time Seen by Provider: 03:55 Date Seen: 10/28/24 Type of block requested by surgeon for post-operative analgesia: TAP Side: bilateral Time out performed: Yes Verification of patient name: Yes Verification of date of : Yes Site marking: site marked Name of person performing procedure: Hernandez Roberts Continuous monitoring Was continuous monitoring of O2 sat, B/P, poultry picking machine tender, recorded every 15 minutes?: Yes Procedure Checklist: sterile prep, needles and gloves Ultrasound guided. Images saved: Yes Medications given in 5ml increments after negative aspiration: Marcaine %: 0.25 mL: 40 Needle gauge: 20 and Exparel mL: 20 Needle gauge: 20 Patient tolerated procedure well: Yes Additional comments: Injected in 5ml increments after negative aspiration Block Charges Block Charge (with Pro Fee): TAP Bilateral Use of Ultrasound Machine for Block: Yes- US Guidance/pain block
[2024-10-28] MEDS: LIDOCAINE 1%-EPI 1:100,000 20 ML INFILTRATI (03:00)
[2024-10-28] MEDS: BUPIVACAINE 0.25% 30 ML INJECTION (03:00)
--- NOTE | 2024-10-28 04:01 | P.GSOP_ITS ---
Operative Note Date of procedure: 10/28/24 Pre-op diagnosis: 1. Acute appendicitis. Post-op diagnosis: 1. Acute appendicitis with likely perforation. Type of Procedure: 1. Laparoscopic converted to open appendectomy (add modifier 22) Indications: 49-year-old male with BMI 51 presented to emergency room with several hours of right lower quadrant abdominal pain that started mid afternoon. The pain was crampy and severe. The pain was not improving, and patient decided to come to the emergency room. In the emergency room he was found to have an elevated WBC of 11. An abdominal CT was obtained that showed a dilated inflamed appendix with an appendicolith at the base of the appendix. There was no evidence of an abscess. On clinical exam patient had tenderness to palpation in the right lower quadrant. Given patient's clinical history and his mild tachycardia as well as low-grade fever, acute appendicitis with perforation was suspected, and laparoscopic appendectomy was recommended. The procedure was discussed in detail. The risks associated procedure including infection, bleeding, injury to intra-abdominal organs, and the need for additional procedures were all discussed with the patient, and he agreed to proceed. Procedure Description: After discussing the risks and benefits of the procedure, the patient signed informed consent.? The operative site was marked and the patient was brought to the operating room and placed on the operating table in supine position.? Care was taken to pad the patient's pressure points.?? The patient was then intubated by anesthesia.?? The operative site was then prepped and draped in the usual sterile fashion.? A time-out was then performed. A 5-mm laparoscopy port was placed in the left upper quadrant guided by a 5-mm laparoscope placed into a translucent trochar. Passage through the layers of the abdominal wall was visualized with the laparoscope. A pneumoperitoneum was established. A 30-degree 5-mm laparoscope was advanced into the abdomen. The abdomen was briefly surveyed, and there was no evidence of diffuse peritonitis. A 12-mm port and a 5-mm port were placed suprapubically and in the right lower quadrant respectively, under direct visualization by laparoscope. Left upper quadrant entrance port was then examined intraabdominally by placing the camera through the left lower quadrant port and no intraabdominal injury was seen. The patient was placed in Trendelenburg position, allowing the abdominal contents to shift cephalad. The large heavy omentum was retracted towards the spleen. The small bowel was reflected medially but the heavy small bowel mesentery was making it difficult for the small bowel to be retracted and held in place away from the cecum. The cecum was identified but the appendix was not visualized. After multiple attempts at visualizing the appendix, I elected to place additional three 5 mm ports under direct visualization. The additional ports were placed above the umbilicus, on the right side of the abdomen, and the left side of the abdomen to help with retraction. A liver retractor was placed into the abdomen and the cecum and terminal ileum were retracted with a liver retractor. This barely allowed visualization of the lateral abdominal wall. I was able to see appendiceal mesentery that was inflamed but it was difficult to tell where the appendix was. It seemed to be retrocecal. I attempted to dissect this appendiceal mesentery with the Harmonic scalpel away from the abdominal wall but the heavy small bowel mesentery and small bowel were constantly falling into the surgical field. After over an hour and a half of trying to identify the appendix and retract intra-abdominal organs, we elected to convert to open procedure. A periumbilical vertical skin incision was made with a scalpel. Subcutaneous fat was divided with cautery. The anterior fascia was divided with cautery. Abdomen was then entered and the peritoneal incision was extended with cautery. All laparoscopic ports were removed and abdomen was deflated. A large Collin retractor was placed into the incision. The small bowel was retracted medially. With finger palpation I was able to identify the appendix and appendiceal mesentery retrocecally. The appendiceal mesentery was attached to the retroperitoneum. These adhesions were taken down with Harmonic scalpel. The appendiceal mesentery was then mobilized with Harmonic scalpel until the base of the appendix was clearly identified. The appendix was then stapled at its base with a vascular staple load. Appendix was sent to pathology. The cecal staple line appeared to be intact with no bleeding. Surgical field was examined for bleeding, and no bleeding was identified. The fascia of the 12-mm port was then closed with a [id number] 0-0 Vicryl suture. It was difficult to close this fascia through the skin incision. The fascia was closed through preperitoneal space by making this space between the fascia and peritoneum. The fascia of the midline incision was then closed with 2 running 0-0 PDS sutures. The umbilicus was then realigned with 3-0 Vicryl subdermal sutures. The skin of the midline incision was closed with papito. The skin of all laparoscopic incisions was closed with 4-0 monocryl. Steri- Strips and sterile dressing were applied over the incisions. All counts were correct at the end of the case. The patient tolerated this procedure well and was transferred to PACU in stable condition. Findings: Difficult case due to patient's body habitus. Appendix most likely was ruptured just distal to the base. No intra-abdominal abscess or stool was noted. Anesthesia: GETA Surgeon: Terrance Sheridan MD Estimated blood loss (mL): 15 Specimen: Appendix Condition: stable Disposition: PACU
[2024-10-28] MEDS: fentaNYL 100 MCG/2 ML inj 50 MCG IVP ×2 (04:40→04:45)
[2024-10-28] MEDS: LACTATED RINGERS 1000 ML 1,000 ML 100 ML IV ×2 (05:16→16:09)
[2024-10-28] MEDS: HYDROmorphone 0.5 mg/0.5 ml inj IVP ×4 (05:23→18:21)
--- NOTE | 2024-10-28 07:57 | PC.NURSE ---
Shift note ([id number]): Patient arrived from PACU at 0457. Pt pleasant, alert and oriented.?Was diaphoretic when arrived. VSS. Given PRN Dilaudid for abdominal pain rated 5/10. Ambulated to bathroom with assist of two. Tolerating ice chips.?
--- NOTE | 2024-10-28 12:48 | PM.IMCN1 ---
Date of Consult Consult date: 10/28/24 Requesting Physician: General Surgery Primary Care Provider: Not a Local Provider Consult Narrative Narrative: HOSPITALIST CONSULT Procedure: Laparoscopic converted to open appendectomy (add modifier 22) The hospital medicine team was asked by the general surgery team to manage the patient's post-operative neuropathy. This is a 49 y/o WM who presented with a ruptured appendix last night and went directly to the operating room is now s/p a lap converted to open appendectomy. He has been hemodynamically stable but alerted the nurses immediate postoperatively he felt a falling asleep feeling in his left hand and forearm. Upon arrival to the floor has had progression of these symptoms to a stocking glove distribution below the left elbow of tingling and more dense numbness in his left hand. He also notes the falling asleep feeling is now present below his left knee and into his foot. No strength issues, no coordination issues. No slurring of speech, headache, limited range of motion in his neck or elevated blood pressure. No meds prior to admission. Morbid obesity with BMI 52 and CELESTE known. Surgery was prolonged 2/2 the lap conversion to open. I have updated and reviewed the active medical problems, past medical history, past surgical history, social history, allergies and medications in our electronic EMR. This includes a cross reference to care everywhere in [facility] and with [facility] databases. PHYSICAL EXAM: CODE STATUS: FULL CODE CONSTITUTIONAL: Conversive, good historian. A/O. Knows setting and context. VITAL SIGNS: see record. HEENT: Normocephalic, atraumatic. PERRL, EOMI, conjunctivae pink, no scleral icterus. Ears and nose externally normal. Pharynx normal. NECK: No JVD. No carotid bruit, no thyromegaly, no adenopathy. CHEST: Clear to auscultation bilaterally HEART: S1 and S2 normal. ABDOMEN: moderate obesity; surgical dressing in place along the midline. EXTREMITIES: No edema. NEURO: Cranial nerves intact. Mentation normal. Normal affect. strength 5/5 in the left UE and LE. stocking glove distribution on neuropathy reported. coordination normal. SKIN: No rashes, petechiae, concerning changes PSYCHIATRIC: Mentation normal. 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 Smoking Status: Never smoker How often do you have a drink containing alcohol: 2-3 times a week How often do you have six or more drinks on one occasion: Never AUDIT-C Alcohol total score: 3 Non-prescribed substance use: marijuana (any form) Non-prescribed substance use details: monthly or less Meds Home Medications and Allergies Home Medications ?Medication ?Instructions ?Recorded ?Confirmed ?Type No Known Home Medications 10/27/24 10/27/24 History Allergies Allergy/AdvReac Type Severity Reaction Status Date / Time No Known Drug Allergies Allergy Verified 10/27/24 23:19 Exam Const: Vital Signs, click to edit/add: Vital Signs - 24 hr 10/27/24 21:59 10/27/24 22:30 10/27/24 22:40 Temperature 100.7 F H Pulse Rate 103 H 104 H Pulse Rate [Pulse Oximeter] 105 H Pulse Rate [Right Pulse Oximeter] Respiratory Rate 18 20 Blood Pressure 148/85 H Blood Pressure [Ri ght Upper Arm] 178/104 H Pulse Oximetry 97 95 92 Oxygen Delivery Me thod Room Air Oxygen Flow Rate 10/27/24 22:45 10/27/24 23:10 10/27/24 23:11 Temperature Pulse Rate 104 H 110 H 108 H Pulse Rate [Pulse Oximeter] Pulse Rate [Right Pulse Oximeter] Respiratory Rate 18 Blood Pressure 160/88 H Blood Pressure [Ri ght Upper Arm] Pulse Oximetry 95 95 94 Oxygen Delivery Me thod Oxygen Flow Rate 10/27/24 23:15 10/28/24 04:05 10/28/24 04:10 Temperature 99.2 F Pulse Rate 108 H 92 90 Pulse Rate [Pulse Oximeter] Pulse Rate [Right Pulse Oximeter] Respiratory Rate 20 22 Blood Pressure 123/67 114/60 Blood Pressure [Ri ght Upper Arm] Pulse Oximetry 95 98 99 Oxygen Delivery Me thod Non Rebreather Mas k Non Rebreather Mas k Oxygen Flow Rate 10 10 10/28/24 04:15 10/28/24 04:20 10/28/24 04:25 Temperature Pulse Rate 93 93 94 Pulse Rate [Pulse Oximeter] Pulse Rate [Right Pulse Oximeter] Respiratory Rate 20 20 20 Blood Pressure 111/62 123/63 125/58 L Blood Pressure [Ri ght Upper Arm] Pulse Oximetry 99 99 93 Oxygen Delivery Me thod Non Rebreather Mas k Room Air Room Air Oxygen Flow Rate 10 10/28/24 04:30 10/28/24 04:35 10/28/24 04:45 Temperature 99.8 F H Pulse Rate 94 93 93 Pulse Rate [Pulse Oximeter] Pulse Rate [Right Pulse Oximeter] Respiratory Rate 20 20 18 Blood Pressure 115/63 119/70 121/68 Blood Pressure [Ri ght Upper Arm] Pulse Oximetry 96 93 95 Oxygen Delivery Me thod Room Air Room Air Nasal Cannula Oxygen Flow Rate 2 10/28/24 04:50 10/28/24 04:57 10/28/24 05:15 Temperature 98.6 F 97.9 F Pulse Rate 91 90 84 Pulse Rate [Pulse Oximeter] Pulse Rate [Right Pulse Oximeter] Respiratory Rate 18 19 18 Blood Pressure 118/50 L 128/78 124/74 Blood Pressure [Ri ght Upper Arm] Pulse Oximetry 96 92 92 Oxygen Delivery Me thod Nasal Cannula Nasal Cannula Nasal Cannula Oxygen Flow Rate 2 1.5 1.5 10/28/24 05:30 10/28/24 05:47 10/28/24 06:00 Temperature 97.6 F 98.1 F Pulse Rate 89 88 88 Pulse Rate [Pulse Oximeter] Pulse Rate [Right Pulse Oximeter] Respiratory Rate 17 17 Blood Pressure 140/58 H 145/70 H 130/81 Blood Pressure [Ri ght Upper Arm] Pulse Oximetry 93 95 94 Oxygen Delivery Me thod Nasal Cannula Nasal Cannula Nasal Cannula Oxygen Flow Rate 1.5 1.5 1.5 10/28/24 06:30 10/28/24 07:20 10/28/24 07:20 Temperature 97.3 F L Pulse Rate 90 Pulse Rate [Pulse Oximeter] Pulse Rate [Right Pulse Oximeter] 88 Respiratory Rate 17 18 18 Blood Pressure 126/73 Blood Pressure [Ri ght Upper Arm] Pulse Oximetry 94 92 Oxygen Delivery Me thod Nasal Cannula Room Air Oxygen Flow Rate 1.5 03/19/25 07:20 10/28/24 08:00 10/28/24 09:00 Temperature 97.1 F L Pulse Rate 88 84 79 Pulse Rate [Pulse Oximeter] Pulse Rate [Right Pulse Oximeter] Respiratory Rate 18 18 18 Blood Pressure 99/53 L 97/67 110/73 Blood Pressure [Ri ght Upper Arm] Pulse Oximetry 92 93 90 Oxygen Delivery Me thod Room Air Room Air Room Air Oxygen Flow Rate 1.5 1.5 10/28/24 10:00 Temperature Pulse Rate 78 Pulse Rate [Pulse Oximeter] Pulse Rate [Right Pulse Oximeter] Respiratory Rate 18 Blood Pressure 110/76 Blood Pressure [Ri ght Upper Arm] Pulse Oximetry 95 Oxygen Delivery Me thod Room Air Oxygen Flow Rate Labs Labs: Short CBC 10/27/24 Range/Units 22:45 WBC 11.80 H (4.50-11.00) K/uL Hgb 14.7 (13.5-17.5) gm/dL Hct 45.3 (37.0-53.0) % Plt Count 274 (140-440) K/uL BMP 10/27/24 22:45 Sodium 135 Potassium 4.0 Chloride 100 Carbon Dioxide 27 BUN 14 Creatinine 0.7 Glucose 115 Calcium 9.1 Liver Function 10/27/24 Range/Units 22:45 Total Bilirubin 0.7 (0.1-1.5) mg/dL Direct Bilirubin 0.3 (0.0-0.5) mg/dL AST 24 (12-35) U/L ALT 43 (4-50) U/L Alkaline Phosphatase 74 (40-150) U/L Albumin 4.1 (3.3-5.0) g/dL Urine 10/27/24 Range/Units 22:12 Urine Color Yellow (Yellow) Urine Appearance Clear (Clear) Urine pH 7.5 (5.0-8.5) Ur Specific Byars 1.020 (1.000-1.030) Urine Protein Negative (Negative) Urine Glucose (UA) Negative (Negative) Assessment and Plan Assessment and plan (1) Acute appendicitis: Status: Acute (2) Severe obesity: Status: Acute (3) Neuropraxia of left upper extremity: Status: Acute (4) Neuropraxia of left lower extremity: Problem comment: -conservative measures: compression/stretches/heat/cold. should resolve with time. no red flags with neuro exam or concern for CVA or spinal compression/abscess. Status: Acute
[2024-10-28 13:20] LABS: Hematocrit 42.7 % (37.0-53.0); Hemoglobin* 13.6 gm/dL (13.5-17.5); Immature Granulocytes Pct Auto 0.2 %; Lymphocytes Percent Auto 7.5 % (20-44); Mean Corpuscular HGB Conc 32 gm/dL (32-36); Mean Corpuscular Hemoglobin 28 pg (26-34); Mean Corpuscular Volume 88 fL (80-100); Monocytes Percent Auto 8.8 % (0.0-11.0); Neutrophils Percent Auto 83.5 % (42.0-72.0); Platelet Count* 276 K/uL (140-440); RDW Coefficient of Variation % 13.6 % (11.5-15.5); Red Blood Count 4.87 m/uL (4.30-5.90)
[2024-10-28 13:22] LABS: Slide Review Reflex No
--- NOTE | 2024-10-28 13:43 | P.GSPN_ITS ---
Subjective Subjective Date Seen: 10/28/24 Interval history: Patient's pain is controlled with pain medication. He does complain of ?stabbing? pain like somebody stabbed his abdomen. He denies nausea vomiting. Denies passing gas. He walked to the bathroom to urinate and urinated twice. Patient complains of feeling of tingling or numbness in the left arm after the elbow and left leg up to the knee. This started from the time surgery. He had some left shoulder discomfort in the PACU but that has now been improving. Exam Narrative: Exam Narrative: Abdomen is protuberant, soft, tender to palpation in the right lower quadrant, no peritoneal signs, surgical dressing over the midline incision was soaked with blood. The dressing was removed. There is blood seen at the skin edge near the umbilicus. A new pressure dressing was placed over the umbilicus. Neuro: Patient's hand director of academic support strength is equal bilaterally, his upper extremities have equal strength bilaterally. There is possible favoring of the left forearm. Bilateral lower extremities are with equal strength. Const: Vital Signs, click to edit/add: Vital Signs - 24 hr 10/27/24 21:59 10/27/24 22:30 10/27/24 22:40 Temperature 100.7 F H Pulse Rate 103 H 104 H Pulse Rate [Pulse Oximeter] 105 H Pulse Rate [Right Pulse Oximeter] Respiratory Rate 18 20 Blood Pressure 148/85 H Blood Pressure [Ri ght Upper Arm] 178/104 H Pulse Oximetry 97 95 92 Oxygen Delivery Me thod Room Air Oxygen Flow Rate 10/27/24 22:45 10/27/24 23:10 10/27/24 23:11 Temperature Pulse Rate 104 H 110 H 108 H Pulse Rate [Pulse Oximeter] Pulse Rate [Right Pulse Oximeter] Respiratory Rate 18 Blood Pressure 160/88 H Blood Pressure [Ri ght Upper Arm] Pulse Oximetry 95 95 94 Oxygen Delivery Me thod Oxygen Flow Rate 10/27/24 23:15 10/28/24 04:05 10/28/24 04:10 Temperature 99.2 F Pulse Rate 108 H 92 90 Pulse Rate [Pulse Oximeter] Pulse Rate [Right Pulse Oximeter] Respiratory Rate 20 22 Blood Pressure 123/67 114/60 Blood Pressure [Ri ght Upper Arm] Pulse Oximetry 95 98 99 Oxygen Delivery Me thod Non Rebreather Mas k Non Rebreather Mas k Oxygen Flow Rate 10 10 10/28/24 04:15 10/28/24 04:20 10/28/24 04:25 Temperature Pulse Rate 93 93 94 Pulse Rate [Pulse Oximeter] Pulse Rate [Right Pulse Oximeter] Respiratory Rate 20 20 20 Blood Pressure 111/62 123/63 125/58 L Blood Pressure [Ri ght Upper Arm] Pulse Oximetry 99 99 93 Oxygen Delivery Me thod Non Rebreather Mas k Room Air Room Air Oxygen Flow Rate 10 10/28/24 04:30 10/28/24 04:35 10/28/24 04:45 Temperature 99.8 F H Pulse Rate 94 93 93 Pulse Rate [Pulse Oximeter] Pulse Rate [Right Pulse Oximeter] Respiratory Rate 20 20 18 Blood Pressure 115/63 119/70 121/68 Blood Pressure [Ri ght Upper Arm] Pulse Oximetry 96 93 95 Oxygen Delivery Me thod Room Air Room Air Nasal Cannula Oxygen Flow Rate 2 10/28/24 04:50 10/28/24 04:57 10/28/24 05:15 Temperature 98.6 F 97.9 F Pulse Rate 91 90 84 Pulse Rate [Pulse Oximeter] Pulse Rate [Right Pulse Oximeter] Respiratory Rate 18 19 18 Blood Pressure 118/50 L 128/78 124/74 Blood Pressure [Ri ght Upper Arm] Pulse Oximetry 96 92 92 Oxygen Delivery Me thod Nasal Cannula Nasal Cannula Nasal Cannula Oxygen Flow Rate 2 1.5 1.5 10/28/24 05:30 10/28/24 05:47 10/28/24 06:00 Temperature 97.6 F 98.1 F Pulse Rate 89 88 88 Pulse Rate [Pulse Oximeter] Pulse Rate [Right Pulse Oximeter] Respiratory Rate 17 17 Blood Pressure 140/58 H 145/70 H 130/81 Blood Pressure [Ri ght Upper Arm] Pulse Oximetry 93 95 94 Oxygen Delivery Me thod Nasal Cannula Nasal Cannula Nasal Cannula Oxygen Flow Rate 1.5 1.5 1.5 10/28/24 06:30 10/28/24 07:20 10/28/24 07:20 Temperature 97.3 F L Pulse Rate 90 Pulse Rate [Pulse Oximeter] Pulse Rate [Right Pulse Oximeter] 88 Respiratory Rate 17 18 18 Blood Pressure 126/73 Blood Pressure [Ri ght Upper Arm] Pulse Oximetry 94 92 Oxygen Delivery Me thod Nasal Cannula Room Air Oxygen Flow Rate 1.5 10/28/24 07:20 10/28/24 08:00 10/28/24 09:00 Temperature 97.1 F L Pulse Rate 88 84 79 Pulse Rate [Pulse Oximeter] Pulse Rate [Right Pulse Oximeter] Respiratory Rate 18 18 18 Blood Pressure 99/53 L 97/67 110/73 Blood Pressure [Ri ght Upper Arm] Pulse Oximetry 92 93 90 Oxygen Delivery Me thod Room Air Room Air Room Air Oxygen Flow Rate 1.5 1.5 10/28/24 10:00 Temperature Pulse Rate 78 Pulse Rate [Pulse Oximeter] Pulse Rate [Right Pulse Oximeter] Respiratory Rate 18 Blood Pressure 110/76 Blood Pressure [Ri ght Upper Arm] Pulse Oximetry 95 Oxygen Delivery Me thod Room Air Oxygen Flow Rate Progress Note:A&P Assessment and plan (1) S/P appendectomy: Status: Acute Plan 49-year-old male s/p laparoscopic converted to open appendectomy POD 0 with a new possible sensory neuropraxia of the left upper and lower extremity. I discussed with the patient that we will keep him NPO for now since his surgery was converted to open. We will wait for return of bowel function. Will continue with IV fluids and IV antibiotics. Patient's heart rate has normalized and he continues to be afebrile since surgery. Patient has numbness in the left arm and leg of unknown etiology. He has equal motor strength. I think this is most likely positional because the patient was lying on the operating table with the left side down in Trendelenburg. The weight of his body was pushing on his left shoulder and could have caused sensory deficit. We will continue observing this. I asked the hospitalist to assess the patient and they are in agreement with the specimen.
[2024-10-28] MEDS: HYDROCODONE-ACETAMIN 5-325 MG 1 TAB PO (19:10)
--- NOTE | 2024-10-28 22:07 | PC.NURSE ---
Patient alert and vitally stable during the shift. Abdominal dressing changed and remained CD&I. Patient still reporting numbness in left hand and left leg/foot. Able to ambulate to the bathroom and around room. Leg numbness improving, but hand still numb. Patient reporting pain- adequately managed with PRN pain medications, ice and movement. Patient tolerating ice chips and small sips of water during the shift. Nursing to continue to monitor.
[2024-10-29] VITALS (9 sets, daily range): BP systolic 131–148; BP diastolic 78–89; PULSE 78–88; RESP 16–18; TEMP 36.4–36.7; O2SAT 96–98
[2024-10-29] MEDS: HYDROmorphone 0.5 mg/0.5 ml inj IVP ×2 (00:52→05:12)
[2024-10-29] MEDS: PIPERACILLIN/TAZOBACTAM 3.375 GM in 0.9 % SODIUM CHLORIDE Mini-bag 100 ML IVPB ×4 (00:55→18:48)
[2024-10-29] MEDS: HYDROCODONE-ACETAMIN 5-325 MG 1 TAB PO ×4 (00:55→19:57)
[2024-10-29] MEDS: LACTATED RINGERS 1000 ML 1,000 ML 100 ML IV ×2 (03:41→17:12)
--- NOTE | 2024-10-29 06:55 | PC.NURSE ---
End of shift summary: Pt has been A&O, afebrile and VSS overnight. Midline abd incision papito intact & 4x4 C/D/I. Lap sites x4 steri strips intact with some old sanguinous drainage. Pt rated pain at 5-6/10 overnight, reporting adequate relief from PO [place] and IV Dilaudid. PIV in right hand infusing LR @ 100 mL/hr. IV Zosyn given q6H. Pt is SBA with a 2ww while ambulating. No BM overnight. Bowel sounds are hypoactive and he reports passing gas. Tolerating ice chips with no nausea. He reports left leg numbness/tingling is about 70% back to baseline. His left hand numbness/tingling is still present. ?
--- NOTE | 2024-10-29 07:19 | P.GSPN_ITS ---
Subjective Subjective Date Seen: 10/29/24 Interval history: Patient is improving. His abdominal pain is controlled with pain medication. P.o. pain medication helped his pain the most. He is passing gas. He did ambulate much yesterday because his leg was still feeling asleep and he did not feel sure of walking. He states that his leg improved significantly and almost back to normal. His hand is improving and today he feels tingling in his fingers instead of numbness. He denies any nausea or vomiting. Exam Narrative: Exam Narrative: Abdomen is soft, protuberant, but not distended, not tender to palpation throughout the abdomen, midline incision with intact papito. The dressing that was placed yesterday to control skin edge bleeding is still intact and is dry. Laparoscopic incisions are covered with dry dressings. There is no surrounding erythema. Const: Vital Signs, click to edit/add: Vital Signs - 24 hr 10/28/24 07:20 10/28/24 07:20 10/28/24 07:20 Temperature 97.1 F L Pulse Rate 88 Pulse Rate [Right Pulse Oximeter] 88 Respiratory Rate 18 18 18 Blood Pressure 99/53 L Blood Pressure [Le ft Arm] Pulse Oximetry 92 [facility] Flow Rate 10/28/24 08:00 10/28/24 09:00 10/28/24 10:00 Temperature Pulse Rate 84 79 78 Pulse Rate [Right Pulse Oximeter] Respiratory Rate 18 18 18 Blood Pressure 97/67 110/73 110/76 Blood Pressure [Le ft Arm] Pulse Oximetry 93 90 95 Oxygen Delivery [facility] Room Air Room Air Room Air Oxygen Flow Rate 1.5 1.5 10/28/24 11:00 10/28/24 15:00 10/28/24 15:00 Temperature 96.4 F L Pulse Rate Pulse Rate [Right Pulse Oximeter] 84 84 Respiratory Rate 18 18 18 Blood Pressure Blood Pressure [Le ft Arm] 116/65 Pulse Oximetry 95 95 [facility] Room Air Oxygen Flow Rate 10/28/24 15:00 10/28/24 19:00 10/28/24 23:00 Temperature 97.4 F L 97.9 F Pulse Rate Pulse Rate [Right Pulse Oximeter] 86 87 84 Respiratory Rate 18 18 18 Blood Pressure Blood Pressure [Le ft Arm] 123/85 132/77 Pulse Oximetry 95 97 Oxygen Delivery Me thod Room Air Room Air Oxygen Flow Rate 10/28/24 23:00 10/28/24 23:00 10/29/24 05:10 Temperature 98 F 97.9 F Pulse Rate Pulse Rate [Right Pulse Oximeter] 84 88 Respiratory Rate 18 18 18 Blood Pressure Blood Pressure [Le ft Arm] 127/87 136/87 Pulse Oximetry 96 96 98 Oxygen Delivery Me thod Room Air Room Air Room Air Oxygen Flow Rate Progress Note:A&P Assessment and plan (1) S/P appendectomy: Status: Acute Plan 49-year-old male s/p laparoscopic converted to open appendectomy POD 1. Patient is improving and doing well. His sensory neuroproxia is improving as well with conservative management. We will continue with IV antibiotics. We will advance him to clear liquid diet. Patient should take pain pills for pain control instead of IV medication. Possible discharge tomorrow.
[2024-10-29 07:53] LABS: HCO3 VBG 29 mmol/L (21-28); PCO2 VBG 47 mmHG (40-50); PO2 VBG < 30.1 mmHG (25-47); pH VBG 7.394 (7.32-7.43)
[2024-10-29 08:02] LABS: Basophils Percent Auto 0.2 % (0.0-3.0); Eosinophils Percent Auto 0.5 % (0.0-7.0); Hematocrit 41.9 % (37.0-53.0); Hemoglobin* 13.1 gm/dL (13.5-17.5); Immature Granulocytes Pct Auto 0.1 %; Lymphocytes Percent Auto 15.4 % (20-44); Mean Corpuscular HGB Conc 31 gm/dL (32-36); Mean Corpuscular Hemoglobin 28 pg (26-34); Mean Corpuscular Volume 89 fL (80-100); Monocytes Percent Auto 11.7 % (0.0-11.0); Neutrophils Percent Auto 72.1 % (42.0-72.0); Platelet Count* 277 K/uL (140-440); RDW Coefficient of Variation % 13.7 % (11.5-15.5); Red Blood Count 4.71 m/uL (4.30-5.90); Slide Review Reflex No; White Blood Count* 12.26 K/uL (4.50-11.00)
[2024-10-29 08:08] LABS: Chloride* 103 mmol/L (96-114)
[2024-10-29 08:09] LABS: Sodium* 137 mmol/L (135-149)
[2024-10-29 08:12] LABS: Anion Gap 6 mEq/L (7-15); Blood Urea Nitrogen* 17 mg/dL (5-24); Calcium* 8.3 mg/dL (8.4-10.6); Carbon Dioxide* 28 mmol/L (20-32); Creatinine* 0.7 mg/dL (0.5-1.5); Est. Creatinine Clearance* 145.85; Estimated Glomerular Filt Rate 114 ml/min; Glucose* 99 mg/dL (60-115)
[2024-10-29 08:26] LABS: C Reactive Protein* 14.3 mg/dL (0.5-1.0)
--- NOTE | 2024-10-29 11:20 | P.IMPN_ITS ---
Assessment and Plan Assessment and plan (1) S/P appendectomy: Problem comment: Lap converted to open due to patient's BMI Status: Acute (2) Neuropraxia of left lower extremity: Problem comment: -conservative measures: compression/stretches/heat/cold. -resolving 10/29 -hospitalist service signed off Status: Acute (3) Neuropraxia of left upper extremity: Problem comment: -conservative measures: compression/stretches/heat/cold. -resolving 10/29 -hospitalist service signed off Status: Acute Subjective Date Seen: 10/29/24 Interval history: Daily Progress Note - Hospital Medicine Day #:2 Post Op Day #: 1 Laparoscopic converted to open appendectomy CC: neurapraxia of Left UE and Left LE subsequent to surgery. 24 HOUR UPDATE: Improving hour to hour. left foot was only tingling for about 10 sec once standing and mild sensation changes in the left big toe. Left shoulder and arm are improving as well. Still has tingling in the left hand but less dense and annoying as yesterday. No new symptoms. No changes in strength. Notable Labs, Micro, Rads, Interventions: reviewed EMR. No concerns. Objective: resting when I enter room. Vitals: see above Left UE and Left LE: no change from previous exchange. Disposition/Potential discharge - per general surgery Today I spent 50minutes seeing the patient, reviewing Expanse and EPIC notes/diagnostics, discussing the care plan with our care time that includes social work, PT/OT, pharmacy, RT, detention and documenting my impressions and plan in the medical record. Exam Const: Vital Signs, click to edit/add: Vital Signs - 24 hr 10/28/24 15:00 10/28/24 15:00 10/28/24 15:00 Temperature 97.4 F L Pulse Rate [Right Pulse Oximeter] 84 86 Respiratory Rate 18 18 18 Blood Pressure [Le ft Arm] 123/85 Pulse Oximetry 95 95 Oxygen Delivery Me thod Room Air Room Air 10/28/24 19:00 10/28/24 23:00 10/28/24 23:00 Temperature 97.9 F Pulse Rate [Right Pulse Oximeter] 87 84 Respiratory Rate 18 18 18 Blood Pressure [Le ft Arm] 132/77 Pulse Oximetry 97 96 Oxygen Delivery Me thod Room Air Room Air 10/28/24 23:00 10/29/24 05:10 10/29/24 07:50 Temperature 98 F 97.9 F Pulse Rate [Right Pulse Oximeter] 84 88 Respiratory Rate 18 18 16 Blood Pressure [Le ft Arm] 127/87 136/87 Pulse Oximetry 96 98 98 Oxygen Delivery Me thod Room Air Room Air Room Air 10/29/24 08:10 10/29/24 10:45 Temperature 97.6 F 98.1 F Pulse Rate [Right Pulse Oximeter] 85 85 Respiratory Rate 16 18 Blood Pressure [Le ft Arm] 131/88 131/81 Pulse Oximetry 98 96 Oxygen Delivery Me thod Room Air Room Air Labs Labs: Laboratory Results - last 24 hr 10/28/24 10/29/24 13:10 07:48 WBC 16.90 H 12.26 H RBC 4.87 4.71 Hgb 13.6 13.1 L Hct 42.7 41.9 MCV 88 89 MCH 28 28 MCHC 32 31 L RDW Coeff of [place] 13.6 13.7 Plt Count 276 277 Neut % (Auto) 83.5 H 72.1 H Lymph % (Auto) 7.5 L 15.4 L [place] % (Auto) 8.8 11.7 H Eos % (Auto) 0.0 0.5 Baso % (Auto) 0.0 0.2 Neut # (Auto) 14.10 H 8.80 H Lymph # (Auto) 1.30 1.90 [place] # (Auto) 1.50 H 1.40 H Eos # (Auto) 0.00 0.10 Baso # (Auto) 0.00 0.00 Abs Immat Gran (auto) 0.00 0.00 Imm/Tot Granulo (auto) 0.2 0.1 VBG pH 7.394 VBG pCO2 47 VBG pO2 < 30.1 VBG HCO3 29 H Sodium 137 Potassium 4.0 Chloride 103 Carbon Dioxide 28 Anion Gap 6 L BUN 17 Creatinine 0.7 Estimated Creat Clear 145.85 Estimated GFR 114 Glucose 99 Calcium 8.3 L C-Reactive Protein 14.3 H
[2024-10-29] MEDS: IBUPROFEN 600 MG TABLET PO ×2 (15:12→20:40)
--- NOTE | 2024-10-29 15:44 | PC.NURSE ---
PT PLEASANT AND COOPERATIVE, ALERT AND ORIENTED, RATING PAIN IN ABDOMEN 4-02/18 BEING MANAGED WITH PRN NORCO AND SCHEDULED MOTRIN, [address] MARTI VIA PHONE REGARDING PATIENT FEELING LIKE PAIN CONTROL COULD BE BETTER, VERBAL TO ADD SCHEDULED MORTIN, MIDLINE ABDOMINAL INSICION CDI, LAP SITES INTACT WITH STERI STRIPES AND OLD DRAINAGE, BOWEL SOUNDS PRESENT, PASSING GAS, NO BOWEL MOVEMENT, TOLERATING CLD WITHOUT NAUSEA OR VOMITING AND NO INCREASE IN PAIN WITH FLUIDS, UP WALKING IN HALLWAYS X2 THIS SHIFT AND UP WALKING IN ROOM INDEPENDENTLY, USED WALKER THIS AFTERNOON WAS ABLE TO WALK WITHOUT WALKER THIS EVENING, LEFT HAND AND FOOT NUMBNESS ARE BETTER PER PAITIENT HAND IS ALMOST BACK TO NORMAL, MY BIG TOE IS BOTHERING ME THE MOST. MD AWARE AND NO CHANGES,
[2024-10-30] MEDS: HYDROCODONE-ACETAMIN 5-325 MG 1 TAB PO ×2 (01:29→07:33)
[2024-10-30] MEDS: PIPERACILLIN/TAZOBACTAM 3.375 GM in 0.9 % SODIUM CHLORIDE Mini-bag 100 ML IVPB ×2 (01:30→06:52)
[2024-10-30] MEDS: HYDROmorphone 0.5 mg/0.5 ml inj IVP (01:32)
[2024-10-30] MEDS: IBUPROFEN 600 MG TABLET PO ×2 (02:07→09:08)
[2024-10-30 03:00] VITALS: BP 137/83; PULSE 72; RESP 18; TEMP 36.4; O2SAT 98
--- NOTE | 2024-10-30 07:01 | PC.NURSE ---
19-: pleasant and cooperative. Calls appropriately. Indep in room. Tolerating clear liquid diet. Saline Locked pt per pt request, pt drinking plenty of fluids. 5 lap sites CDI, midline incision covered with gauze, CDI. Bowels active. pt rating abd pain 5-9/10, prn [place] given q6h, 0.5mg Dilaudid given IVP x1 for increased abd pain. Pt verbalized feeling nervous about being discharged & the current med regime not offering best relief, to to discuss with surgeon. Active ice to abd. Encouraging ambulation, pt up in room frequently. VSS.
[2024-10-30 07:30] VITALS: BP 144/91; PULSE 73; RESP 18; TEMP 36.6; O2SAT 95
--- NOTE | 2024-10-30 10:34 | P.DS_ITS ---
DS: Providers Provider Date Seen: 10/30/24 Date of admission: 10/28/24 08:46 Primary care physician: Not a Local Provider Admitting Clinician: Terrance Sheridan MD Attending Physician on discharge: Terrance Sheridan MD Date of Discharge: 10/30/24 DS: Diagnosis Discharge Diagnosis (1) S/P appendectomy: Status: Acute Problem details: Lap converted to open due to patient's BMI DS: Summary Hospital Course Hospital Course: 49-year-old male was admitted to the hospital after he underwent laparoscopic converted to open appendectomy. Patient did well postoperatively. He was on IV antibiotics. He had return of bowel function with passing gas. He tolerated regular diet. Patient also had sensory neurapraxia due to positioning with numbness of his lower left leg and lower left arm. Those symptoms have been improving with conservative management. By the day of discharge his leg was improved to nearly normal and his arm and hand also improved to nearly normal with some residual tingling in his index and thumb finger. Patient's pain was not controlled well with [place] and he was switched to oxycodone. I also recommended to take ibuprofen scheduled when patient goes home. Time Spent with Patient Time attestation: Total time spent providing and/or coordinating discharge services: Exam Narrative: Exam Narrative: Abdomen is soft, protuberant, not tender to palpation, papito are intact in the midline laparotomy incision. There is a 3 mm wide sliver of skin at the umbilicus that appears dusky and major necrotic. There is no surrounding erythema. We will continue observing this. Laparoscopic incisions are all covered with Steries and there is no surrounding erythema. Const: Vital Signs, click to edit/add: Vital Signs - 24 hr 10/29/24 10:45 10/29/24 15:00 10/29/24 15:03 Temperature 98.1 F 98.1 F Pulse Rate [Right Pulse Oximeter] 85 81 Respiratory Rate 18 18 18 Blood Pressure [Le ft Arm] 131/81 138/84 Pulse Oximetry 96 96 96 Oxygen Delivery Me thod Room Air Room Air Room Air 10/29/24 20:00 10/29/24 22:55 10/29/24 23:00 Temperature 98.1 F 97.8 F Pulse Rate [Right Pulse Oximeter] 82 78 Respiratory Rate 18 18 18 Blood Pressure [Le ft Arm] 148/89 H 132/78 Pulse Oximetry 96 96 Oxygen Delivery Me thod Room Air Room Air 10/29/24 23:00 10/30/24 03:00 10/30/24 07:30 Temperature 97.5 F L Pulse Rate [Right Pulse Oximeter] 72 73 Respiratory Rate 18 18 18 Blood Pressure [Le ft Arm] 137/83 Pulse Oximetry 98 Oxygen Delivery Me thod Room Air 10/30/24 07:30 10/30/24 07:30 Temperature 97.9 F Pulse Rate [Right Pulse Oximeter] 73 Respiratory Rate 18 18 Blood Pressure [Le ft Arm] 144/91 H Pulse Oximetry 95 95 Oxygen Delivery Me thod Room Air Room Air Discharge Plan Discharge Disposition: Home, Self-Care Date of Admission: 10/28/24 08:46 Attending Provider on Discharge: Terrance Sheridan Primary Care Provider: Provider,Not a Local Condition: Improved Anticipated Discharge Date/Time: 10/30/24 10:28 Discharge Medications: New amoxicillin-pot clavulanate 875-125 mg tablet 1 tab PO BID Qty: 10 0RF oxycodone 5 mg capsule 5 mg PO Q6H PRN (Reason: pain) Qty: 20 0RF Discharge Orders: Discharge Order (Routine); Ordered 10/30/24 Ordered By: Terrance Sheridan Patient Education: General Anesthesia (DC), Laparoscopic Appendectomy (DC), Post-Operative Instructions: Appendectomy Additional Instructions: No strenuous activity or lifting more than 15-20 lbs for 4-6 weeks. Take laxative such as MiraLax or senna daily for the first 7-10 days after surgery to prevent constipation. Activity Level: No strenuous activity Discharge Diet: Regular Follow Up Appointments: Terrance Sheridan MD [Staff Physician] - (Patient needs nursing only appointment on POD 10 for staple removal, and 2 week follow-up in my clinic.) Forms: Work/School Release, [employer] Info Instructions
[2024-10-30 11:00] VITALS: BP 146/89; PULSE 76; RESP 16; TEMP 36.6; O2SAT 97
[2024-10-30] MEDS: OXYCODONE 5 MG TABLET PO (11:05)
--- NOTE | 2024-10-30 13:23 | PC.NURSE ---
Nursing discharge note: Pt has been A&O, afebrile and VSS on day of discharge. He is up independently in his room with a steady gait and encouraged to walk in the halls. Diet was advanced today and he tolerated scrambled eggs & toast without any nausea or increase in pain. He rated pain 7/10 this AM and then his [place] was changed to Oxycodone which brought pain down to a 5/10. Lap sites x5 steri strips intact with some old bloody drainage and midline papito are C/D/I. Pt has active bowel sounds and passing gas but no BM today. PIV removed from right hand, catheter intact. Pt discharged home with his family at 1310.
== END 2024-10-30 13:10 | disposition home or self-care (01) | DRG 398 ==
LOC: ED 10-28 00:32 → SS 10-28 00:59 → MEDSURG 10-28 01:01 → SS 10-28 08:50 → MEDSURG 10-28 08:50
PROVIDERS: Surgery; Admitting Provider Family Medicine; Emergency Provider Emergency Medicine; Visit Provider Family Medicine
PROC: 0DTJ4ZZ Resection of Appendix, Percutaneous Endoscopic Approach (ICD-10-PCS; CPT 44970; principal; 2024-10-28 00:45)
DX: K35.32 Acute appendicitis with perforation, localized peritonitis, and gangrene, without abscess (principal); G97.82 Other postprocedural complications and disorders of nervous system; Z68.43 Body mass index [BMI] 50.0-59.9, adult; S44.92XA Injury of unspecified nerve at shoulder and upper arm level, left arm, initial encounter; S84.92XA Injury of unspecified nerve at lower leg level, left leg, initial encounter; Y92.234 Operating room of hospital as the place of occurrence of the external cause; Z53.31 Laparoscopic surgical procedure converted to open procedure; R10.31 Right lower quadrant pain; G89.18 Other acute postprocedural pain; E66.01 Morbid (severe) obesity due to excess calories; G47.33 Obstructive sleep apnea (adult) (pediatric)
CPT/HCPCS: 00840; 36415; 64488; 74177; 76942; 80048; 80076; 81001; 82803; 83605; 83690; 85025; 86140; 97110; 97165; 97535; 99140; 99284; 99285; A9270; J0330; J0665; J1100; J1171; J2270; J2405; J2543; J2704; J3010; J3490; J7030; J7120; Q9967